=== PATIENT | female | born 1935 | race Caucasian/White ===

== ENCOUNTER 2021-06-29 15:12 | Inpatient (IN) | payer MEDICAID, OTHER ==
[~2021-06-29] VITALS: Ht 157.5 cm; Wt 50.0 kg
[2021-06-29] MEDS ORDERED: KETOROLAC 60MG/2ML VIAL IM STA (15:39)
[2021-06-29] MEDS ORDERED: HYDROCODONE/ACETAMINOPHEN 5/325MG TABLET PO STA (15:39)
[2021-06-29 16:57] LABS: BASOPHILS % 0.3 % (0.0-2.0); EOSINOPHILS % 4.8 % (0.0-5.0); HEMATOCRIT. 30.4 % (36.0-48.0); HEMOGLOBIN. 10.2 g/dL (12.0-16.0); LYMPHOCYTES % 12.5 % (20.0-50.0); MEAN CORPUSCULAR HEMOGLOBIN 34.6 pg (28.0-32.0); MEAN CORPUSCULAR VOLUME 102.7 fL (81.0-99.0); NEUTROPHILS % 68.4 % (40.0-76.0); PLATELET 188 x1000/uL (130-400); RED BLOOD CELL COUNT 2.96 mill/uL (4.2-5.4); RED CELL DISTRIBUTION WIDTH 15.5 % (11.6-14.6)
[2021-06-29 17:01] LABS: CHLORIDE 104 mEq/L (98-107)
[2021-06-29] MEDS ORDERED: SODIUM CHLORIDE 0.9% 1,000 ML IV ONE (19:30)
[2021-06-29] MEDS ORDERED: HYDROCODONE/ACETAMINOPHEN 5/325MG TABLET PO ONE (20:00)
[2021-06-29] MEDS ORDERED: HYDRALAZINE 20MG/ML VIAL IV ONE (23:15)
[2021-06-29 23:20] VITALS: BP 161/52
[2021-06-30] MEDS ORDERED: ONDANSETRON HCL 4MG/2ML INJ IV PRN (11:00)
[2021-06-30] MEDS ORDERED: HYDROCODONE/ACETAMINOPHEN 5/325MG TABLET PO PRN (11:00)
[2021-06-30] MEDS ORDERED: ACETAMINOPHEN 325MG TABLET PO PRN (11:00)
== END 2021-06-30 00:12 | disposition short-term general hospital (02) | DRG 347 ==
LOC: ER 15:12 → MICUSO 20:34
PROVIDERS: ADMIT Internal Medicine; ATTEND Internal Medicine
DX: M54.50 Low back pain, unspecified (principal); I12.0 Hypertensive chronic kidney disease with stage 5 chronic kidney disease or end stage renal disease; E11.22 Type 2 diabetes mellitus with diabetic chronic kidney disease; N18.6 End stage renal disease; G89.29 Other chronic pain; Z74.01 Bed confinement status; Z99.2 Dependence on renal dialysis
CPT/HCPCS: 36415; 72100; 73521; 80053; 85025; 93005; 99285; J0360; J7030

== ENCOUNTER 2021-08-27 19:37 | Emergency (ER) | payer OTHER ==
[~2021-08-27] VITALS: Ht 144.8 cm; Wt 63.0 kg
[2021-08-27] MEDS ORDERED: ACETAMINOPHEN 325MG TABLET PO STA (21:46)
[2021-08-27 23:37] LABS: BASOPHILS % 0.3 % (0.0-2.0); EOSINOPHILS % 0.9 % (0.0-5.0); LYMPHOCYTES % 13.5 % (20.0-50.0); MEAN CORPUSCULAR HEMOGLOBIN 34.8 pg (28.0-32.0); MEAN CORPUSCULAR VOLUME 102.2 fL (81.0-99.0); MEAN PLATELET VOLUME 7.7 fl (7.4-10.4); MONOCYTES % 10.7 % (2.0-8.0); NEUTROPHILS % 74.6 % (40.0-76.0); PLATELET 171 x1000/uL (130-400); RED BLOOD CELL COUNT 1.67 mill/uL (4.2-5.4); RED CELL DISTRIBUTION WIDTH 15.6 % (11.6-14.6)
[2021-08-27 23:41] LABS: CHLORIDE 100 mEq/L (98-107); INR 1.2; PROTHROMBIN TIME 12.7 sec (9.6-11.0)
[2021-08-28 00:05] LABS: HEMOGLOBIN. 5.8 g/dL (12.0-16.0)
[2021-08-28] MEDS ORDERED: EPOETIN ALFA-EPBX 4,000 UNIT/ML VIAL SUBCUT NR (00:30)
[2021-08-28 04:00] VITALS: BP 156/45
== END 2021-08-28 04:15 | disposition short-term general hospital (02) ==
LOC: ER 19:37
DX: E11.22 Type 2 diabetes mellitus with diabetic chronic kidney disease (principal); I12.0 Hypertensive chronic kidney disease with stage 5 chronic kidney disease or end stage renal disease; N18.6 End stage renal disease; D63.1 Anemia in chronic kidney disease; R10.9 Unspecified abdominal pain; Z95.0 Presence of cardiac pacemaker; Z99.2 Dependence on renal dialysis; Z86.73 Personal history of transient ischemic attack (TIA), and cerebral infarction without residual deficits; Z98.890 Other specified postprocedural states; Z20.822 Contact with and (suspected) exposure to COVID-19
CPT/HCPCS: 36415; 71045; 72170; 80053; 85025; 85610; 86850; 86900; 86901; 86920; 87426; 99291; C9803; J0885